=== PATIENT | female | born 1940 | race Caucasian/White ===

== ENCOUNTER 2016-08-21 07:07 | Day surgery (SDC) | payer MEDICARE, MEDICAID ==
[2016-08-21] VITALS (14 sets, daily range): BP systolic 108–147; BP diastolic 47–64; PULSE 60–82; RESP 17–51
[~2016-08-21] VITALS: Ht 160 cm; Wt 80.0 kg
[2016-08-21] MEDS ORDERED: HYDR-3671 PO (09:05)
[2016-08-21] MEDS ORDERED: LEVEM SC ×2 (09:05)
[2016-08-21] MEDS ORDERED: BISA5TAB6 PO (09:05)
[2016-08-21] MEDS ORDERED: LACT20SO2 PO (09:05)
[2016-08-21] MEDS ORDERED: FAMO20TA18 IV* (09:05)
[2016-08-21] MEDS ORDERED: MVI PO (09:05)
[2016-08-21] MEDS ORDERED: ESCI10TA48 PO (09:05)
[2016-08-21] MEDS ORDERED: LOV40I SC (09:05)
[2016-08-21] MEDS ORDERED: THEO400T2 PO (09:05)
[2016-08-21] MEDS ORDERED: AMLO-147 PO (09:05)
[2016-08-21] MEDS ORDERED: BISA10SU16 RC (09:05)
[2016-08-21] MEDS ORDERED: IPRA12.93 INHALATION (09:05)
[2016-08-21] MEDS ORDERED: HEPARIN 1000 UNITS/NS (A-LINE) 1,000 ML ONE (10:13)
[2016-08-21] MEDS ORDERED: IODIXANOL LOCM 50 ML BTL ONE (10:13)
[2016-08-21] MEDS ORDERED: IODIXANOL LOCM 100 ML BTL ONE (10:13)
[2016-08-21] MEDS ORDERED: CEFAZOLIN 1 GM/50 ML (PMX) 50 ML IVPB ONE (10:13)
[2016-08-21] MEDS ORDERED: LIDOCAINE 1%/EPI 30 ML INJ ONE (10:14)
[2016-08-21] MEDS ORDERED: BUPIVACAINE 0.5% (SDV) 30 ML INJ ONE (10:14)
[2016-08-21] MEDS ORDERED: SOD CHLORIDE 0.9% 1,000 ML ONE (10:27)
[2016-08-21] MEDS ORDERED: LIDOCAINE 1% (MDV) 20 ML INJ ONE (10:28)
[2016-08-21] MEDS ORDERED: POLYMYXIN/BACITRACIN 1L IRRIG IRR SCH (10:30)
[2016-08-21] MEDS ORDERED: MIDAZOLAM 1 MG/ML 2 ML INJ ONE (11:07)
[2016-08-21] MEDS ORDERED: FENTAnyl 50 MCG/ML VIAL ONE (11:07)
[2016-08-21] MEDS ORDERED: PROPOFOL 20 ML ONE (11:28)
[2016-08-21] MEDS ORDERED: morphine 2 MG INJ IV PRN (12:30)
[2016-08-21] MEDS ORDERED: ACETAMINOPHEN 325 MG TAB PO PRN (12:30)
--- NOTE | 2016-08-21 12:57 | RADRPT ---
PROCEDURE: XR Chest. CLINICAL INDICATION: Postoperative evaluation TECHNIQUE: Single frontal chest x-ray. COMPARISON: None. FINDINGS: Left-sided single lead pacemaker is in place. There is mild cardiomegaly and mild to moderate pulmo nary vascular congestion. Aortic atherosclerotic calcification is noted. Hazy bibasilar pulmonary opacities are noted, greater on the right, likely atelectasis and/or mild pleural effusions. No pne umothorax is identified. The osseous structures are unremarkable. IMPRESSION: 1. Mildly enlarged cardiac silhouette and mild to moderate pulmonary vascular congestion. 2. Hazy bibasilar pulmonary opacities, greater on the right, likely atelectasis and/or mild pleural effusions. 3. Aortic atherosclerosis. 4. No pneumothorax or evidence of focal acute infiltrate. RPTAT: QQ .Robb Holder MD, MD Date Time Electronically viewed and signed by .Robb Holder MD, on 08/21/2016 12:57 .R/
--- NOTE | 2016-08-21 13:32 | CONS ---
DATE OF ADMISSION: 08/21/2016 DATE OF CONSULTATION: 08/21/2016 REFERRING PHYSICIAN: Dr. Adams REASON FOR EVALUATION: Atrial fibrillation pauses, tachybrady syndrome. HISTORY OF PRESENT ILLNESS: Ms. Coronado is a 76-year-old woman with history of hypertension, dysli pidemia, prior history of CVA, history of chronic renal insufficiency, history of atrial fibrillatio n, who is in an LTAC facility. I received a call from Dr. Adams who noted that the patient has in termittent bradycardia with pauses greater than 3 seconds. She is in atrial fibrillation with a tac hybrady arrhythmia that is difficult to control. The patient has been on dopamine yesterday, but of f dopamine now. I have been asked to see patient in evaluation for pacemaker placement. Dr. Elpidio hernandez is her primary military police officer who communicated with the family. Lovenox was stopped and the patient was consented for the pacemaker placement. This was reaffirmed with the patient and I explained to her pacemaker procedure and she is agreeable to proceed. Given atrial fibrillation, single chamber pacemaker would be appropriate. The plan is to place the pacemaker and then resume anticoagulation as soon as possible. PAST MEDICAL HISTORY: 1. Hypertension. 2. Dyslipidemia. 3. History of cerebrovascular accident. 4. History of atrial fibrillation, [place] score of greater than. 5. History of chronic renal injury. 6. History of chronic obstructive pulmonary disease. ALLERGIES: NO KNOWN DRUG ALLERGIES. SOCIAL HISTORY: The patient does not smoke, does not drink, does not use any drugs. FAMILY HISTORY: Negative for sudden cardiac or premature coronary artery disease. MEDICATIONS: 1. Amlodipine 10 mg . 2. Docusate. 3. She was on dopamine drip. 4. Lovenox 40 mg subq which was held. 5. Hydralazine. 6. Famotidine. 7. Insulin on a sliding scale. REVIEW OF SYSTEMS: CONSTITUTIONAL: No fevers, no chills, intermittent episodes of bradycardia. HEENT: No changes in vision or hearing. CARDIAC: No chest pain reported now. RESPIRATORY: Short of breath. GASTROINTESTINAL: No nausea, vomiting, diarrhea, constipation. GENITOURINARY: No dysuria, hematuria urination. NEUROLOGIC: The patient has previous CVA. PSYCHIATRIC: No known history of psychiatric illness. PHYSICAL EXAMINATION: VITAL SIGNS: Heart rate in the 50s, in atrial fibrillation, blood pressure is 45/80. GENERAL: She is a well-nourished woman in no acute distress, alert and oriented x3, aware of her co ndition. HEAD: Normocephalic, atraumatic. Eyes anicteric. NECK: Supple. JVD 6-7 cm. There is no lymphadenopathy or thyromegaly. HEART: Regular with soft holosystolic murmur mid chest, PMI displaced. LUNGS: Coarse with occasional wheezes. ABDOMEN: Distended, bowel sounds are present. There is no hepatosplenomegaly. GENITOURINARY: Exam is intact. EXTREMITIES: Show no clubbing, cyanosis. Trace edema. There is some bruising. ASSESSMENT AND PLAN: 1. Symptomatic bradycardia with tachybrady syndrome, patient has class I indication for pacemaker, this was validated by her primary military police officer, Dr. Ayaan Nelson. The plan is for patient to have a pacemaker placed today. Risks, benefits and alternatives were outlined to the patient. 2. History of hypertension. Blood pressure well maintained. Continue medical therapy as warranted . 3. Aortic stenosis, mild by 2D echo which was done recently with preserved ejection fraction. No i ntervention is planned. 4. History of pneumonia nearly resolved by x-ray. No fevers now, reasonable to proceed with the th erapy. The patient has been on antibiotic for several days. 5. Renal insufficiency. We will validate creatinine. We will try avoid contrast if possible. I would like to thank Dr. Adams and Dr. Nelson for referring this patient for my evaluation. Dictated By: RUPINDER MORALES MD ML/TERRY Conf#: [id number] DID#: [id number]
[2016-08-21] MEDS ORDERED: CEFAZOLIN 1 GM/50 ML (PMX) 50 ML IVPB SCH (14:00)
--- NOTE | 2016-08-21 14:15 | SP ---
DATE OF PROCEDURE: 08/21/2016 REFERRING PHYSICIAN: Dr. Adams and Dr. Nelson. REASON FOR PACEMAKER PLACEMENT: Tachybrady syndrome, symptomatic bradycardia, atrial fibrillation w ith pauses. PROCEDURE PERFORMED: 1. Single-chamber pacemaker placement. 2. Fluoroscopy with interpretation. 3. Contrast injection to assess patency. SURGEON; Rupinder Morales MD PACEMAKER INFORMATION: Pacemaker [employer] [id number], serial #[id number]. RV lead is [employer] Tendril lead 2088TC/52 cm lead, serial #[id number], placed in the RV apex. ACUTE THRESHOLDS: R-wave is more than 12 millivolts, lead impedance 60 ohms, threshold 0.75 vo lts at 0.4 msec. Initial setting is VVI 60. DESCRIPTION OF PROCEDURE: The informed consent was obtained. The patient was brought to the cath l ab in a fasting condition. Anesthesiologist supervised airway and sedation. Antibiotics were given prior to the incision. The patient had left side of chest prepped and draped in usual sterile fash ion. Lidocaine 1% was used for local analgesia. Using cautery and blunt dissection, the pocket was created. Upper extremity venogram was done to assess patency. The subclavian vein was cannulated and J-wire passed easily. From there, using 6 Pashto sheath at the base, RV lead was advanced into RV apex and actively fixed in the RV apex after some slack was left inside the lead. The sheath was pulled away and the lead was sutured to the muscle layer with 2-0 Ethibond sutures. The lead was a ttached to the generator. Pocket irrigated with antibiotic solution. Entire system was placed insi de the pocket. The skin was closed with multiple layers of 2-0 Vicryl sutures. Steri-Strips were p laced on top of the incision. The patient appears to have tolerated her procedure well. She did oliveros ve an episode of desaturation during the procedure, likely with obstruction. We are going to monito r her. She is going to have a chest x-ray to rule out pneumothorax and continuous monitoring. We w ill follow the patient as an outpatient. Dictated By: RUPINDER MORALES MD ML/NTS Conf#: [id number] DID#: [id number] CC: Anival Adams DO;*EndCC*
[2016-08-22] VITALS: BP 147/93; RESP 20
[2016-08-22] MEDS ORDERED: CEPHALEXIN 500 MG CAP PO SCH
--- NOTE | 2016-08-23 11:45 | RADRPT ---
Vent Rate: 73 bpm RR Interval: 0 msec WI Interval: 0 msec QRS Duration: 86 msec QT Interval: 410 msec QTC Interval: 451 msec P-R-T [place]: 0 - 52 - 0 degrees Atrial fibrillation Minimal voltage criteria for LVH, may be normal variant Marked ST abnormality, possible inferior subendocardial injury Abnormal ECG Electronically Signed By: Osmany Dubon [id number]
== END 2016-08-21 20:10 | disposition other institution (70) ==
LOC: SDS 07:07 → TEL 12:08
PROVIDERS: ADMIT Internal Medicine Clinical Cardiac Electrophysiology; ATTEND Internal Medicine Clinical Cardiac Electrophysiology
DX: I49.5 Sick sinus syndrome (principal); I48.91 Unspecified atrial fibrillation; I10 Essential (primary) hypertension; Z86.73 Personal history of transient ischemic attack (TIA), and cerebral infarction without residual deficits; E78.5 Hyperlipidemia, unspecified; J44.9 Chronic obstructive pulmonary disease, unspecified
CPT/HCPCS: 33207; 71010; 82962; 93005; C1786; C1898; C2629; G0378; J0690; J1644; J2250; J3010; J7040; Q9967